=== PATIENT | female | born 1985 | race Two or more races ===

== ENCOUNTER 2016-09-28 16:01 | Emergency (ER) | payer OTHER ==
[~2016-09-28 16:01] MED LIST: IBUP80TA PO; PERCOCET PO; VITAPRTA PO
[2016-09-28] MEDS ORDERED: ONDANSETRON 4 MG ORAL DISINTEGRATING TAB (S0181) As Ordered ONE (16:50)
--- NOTE | 2016-09-28 17:15 | EDDOCDS ---
Nurse's Notes [facility] Name: Marlee Murillo Age: 31 yrs Sex: Female : 1985 Arrival Date: 09/28/2016 Time: 16:01 Bed Family 1 Private MD: HERBERT Marroquin Diagnosis: Nausea with vomiting, unspecified;Diarrhea, unspecified Presentation: 09/28 16:09 Presenting complaint: Patient states: c/o n/v/d, onset yesterday. also c/o sore throat, ead left ear pain, and congestion for 1 week. Adult Sepsis Screening: The patient does not have new or worsening altered mentation. Patient's respiratory rate is less than 22. Systolic blood pressure is greater than 100. Patient has a qSOFA score of 0- Negative Sepsis Screen. Suicide/Homicide risk assessment- the patient denies having any suicidal and/or homicidal ideations and does not present with any other emotional, behavioral or mental health complaints. Status: The patient is a dependent. Transition of care: patient was not received from another setting of care. 16:09 Acuity: LENA Level 3 ead 16:09 Method Of Arrival: Walkin/Carried/Asstd ead Triage Assessment: 16:10 General: Appears in no apparent distress, Behavior is appropriate for age, cooperative. ead Pain: Location: abdomen Pain currently is 8 out of 10 on a pain scale. EENT: Reports nasal congestion pain in left ear. GI: Reports diarrhea, lower abdominal pain, nausea, vomiting. Derm: Skin is pink, warm & dry. 16:12 Pt Declines HIV testing. 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 none - PMHx: none; - PSHx: ; - Social history: Smoking status: Patient states was never smoker of tobacco. No barriers to communication noted, The patient speaks fluent Puerto Rican, Speaks appropriately for age. - Family history: Not pertinent. - : The pt / caregiver states he / she is not on anticoagulants. Home medication list is obtained from the patient. - Exposure Risk Screening:: None identified. Screenin:12 Screening information is obtained from the patient. Fall risk: No risks identified. rs3 Assistance ADL's: requires no assistance with activities of daily living. Abuse/DV Screen: The patient / caregiver reports he/she is: not in a situation that causes fear, pain or injury. Nutritional screening: No deficits noted. Advance Directives: Currently, there is no health care proxy. home support is adequate. Assessment: 17:13 General: Appears in no apparent distress, Behavior is appropriate for age, cooperative. rs3 Respiratory: Airway is patent Respiratory effort is even, unlabored. GI: Abdomen is non- distended Bowel sounds present X 4 quads. Abd is soft and non tender X 4 quads. Reports nausea, vomiting. Vital Signs: 16:03 BP 117 / 60; Pulse 130; Resp 18 S; Temp 98.5(O); Pulse Ox 96% on R/A; Weight 52.16 kg dd6 (R); Height 5 ft. 2 in. (157.48 cm) (R); 16:03 Body Mass Index 21.03 (52.16 kg, 157.48 cm) dd6 Vitals: 16:03 Log In Time: September 28, 2016 at 16:00. dd6 ED Course: 16:03 Patient visited by Dagoberto Mancilla PCA. dd6 16:03 Lopez [facility] [place] Private Physician. dd6 16:03 Patient moved to Waiting dd6 16:05 Patient moved to Pre RCE dd6 16:10 Triage Initiated ead 16:15 Patient moved to Family 1 jc4 16:34 [facility] ke 16:34 Patient visited by Gordon Andujar FNP. ke 16:34 Patient visited by Gordon Andujar FNP. ke 16:48 Lopez [facility] [place] Referral Physician. ke 17:13 No IV's were initiated during this patient's visit. No procedures done that require rs3 assistance. 17:14 The patient / caregiver is instructed regarding the plan of care and ED course. rs3 Administered Medications: 16:53 Drug: Ondansetron ODT 4 mg [ondansetron 4 mg disintegrating tablet (1 tabs)] Route: PO; rs3 Order Results: There are currently no results for this order. Outcome: 16:49 Discharge ordered by Provider. ke 17:13 Discharge Assessment: patient administered narcotics - no. The following High Risk rs3 Discharge criteria are identified: None. Discharged to home with family. Condition: stable. Discharge instructions given to patient, Instructed on discharge instructions, follow up and referral plans. medication usage, Demonstrated understanding of instructions, medications, Pt was receptive of discharge instructions/ teaching. Prescriptions given X 1. No special radiology studies were completed. Property :Personal belongings accompany Pt. 17:14 Patient left the ED. rs3 Signatures: Gordon Andujar, CHIEF HUMAN RESOURCES OFFICER CHIEF HUMAN RESOURCES OFFICER Dagoberto Smith, LLOYD PILE DRIVING SUPERVISOR dd6 Bee Marin RN RN rs3 Alix Winn, RN RN jc4 Paris Lozano,RN RN ead MTDD
--- NOTE | 2016-09-28 17:15 | EDDOCDS ---
Physician Documentation [facility] Name: Marlee Murillo Age: 31 yrs Sex: Female : 1985 Arrival Date: 09/28/2016 Time: 16:01 Bed Family 1 Private MD: HERBERT Marroquin Disposition: 09/28/16 16:49 Discharged to Home/Self Care. Impression: Nausea with vomiting, unspecified, Diarrhea, unspecified. - Condition is Stable. - Discharge Instructions: Diarrhea, Nausea and Vomiting. - Prescriptions for ZOFRAN ODT 4 mg - dissolve 1 tablet by ORAL route 4 times per day As needed do not chew, do not swallow whole; 10 tablet. - Medication Reconciliation, Local Pharmacy Hours form. - Follow up: HERBERT Marroquin; When: 4 - 5 days; Reason: Recheck today's complaints, Continuance of care. - Problem is an ongoing problem. - Symptoms are unchanged. Historical: - Allergies: no known allergies; - Home Meds: 1. none - PMHx: none; - PSHx: ; - Social history: Smoking status: Patient states was never smoker of tobacco. No barriers to communication noted, The patient speaks fluent Turkish, Speaks appropriately for age. - Family history: Not pertinent. - : The pt / caregiver states he / she is not on anticoagulants. Home medication list is obtained from the patient. - Exposure Risk Screening:: None identified. 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 2 in. (157.48 cm) (R); 16:03 Body Mass Index 21.03 (52.16 kg, 157.48 cm) dd6 MDM: 16:44 Ondansetron ODT Oral Disintegrating Tablet 4 mg PO once ordered. yvonne 17:09 Financial registration complete. mpb Administered Medications: 16:53 Drug: Ondansetron ODT 4 mg [ondansetron 4 mg disintegrating tablet (1 tabs)] Route: PO; rs3 Signatures: Gordon Andujar, ROAD ROLLER OPERATOR ROAD ROLLER OPERATOR Bee Dejesus,RN RN rs3 Paris Lozano,RN RN ead Steve Roe, Reg Reg mpb MTDD
--- NOTE | 2016-09-30 18:15 | EDDOCDS ---
Physician Documentation [facility] Name: Marlee Murillo Age: 31 yrs Sex: Female : 1985 Arrival Date: 09/28/2016 Time: 16:01 Bed Family 1 Private MD: HERBERT Marroquin Disposition: 09/28/16 16:49 Discharged to Home/Self Care. Impression: Nausea with vomiting, unspecified, Diarrhea, unspecified. - Condition is Stable. - Discharge Instructions: Diarrhea, Nausea and Vomiting. - Prescriptions for ZOFRAN ODT 4 mg - dissolve 1 tablet by ORAL route 4 times per day As needed do not chew, do not swallow whole; 10 tablet. - Medication Reconciliation, Local Pharmacy Hours form. - Follow up: HERBERT Marroquin; When: 4 - 5 days; Reason: Recheck today's complaints, Continuance of care. - Problem is an ongoing problem. - Symptoms are unchanged. Historical: - Allergies: no known allergies; - Home Meds: 1. none - PMHx: none; - PSHx: ; - Social history: Smoking status: Patient states was never smoker of tobacco. No barriers to communication noted, The patient speaks fluent Welsh, Speaks appropriately for age. - Family history: Not pertinent. - : The pt / caregiver states he / she is not on anticoagulants. Home medication list is obtained from the patient. - Exposure Risk Screening:: None identified. 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 2 in. (157.48 cm) (R); 16:03 Body Mass Index 21.03 (52.16 kg, 157.48 cm) dd6 MDM: 16:44 Ondansetron ODT Oral Disintegrating Tablet 4 mg PO once ordered. ke 17:09 Financial registration complete. mpb 09/29 01:59 T-Sheet-- Draft Copy was scanned into [employer] and attached to record. hs2 09/30 16:33 [place] [place] Payment Agreement was scanned into [employer] and attached to record. zo Administered Medications: 09/28 16:53 Drug: Ondansetron ODT 4 mg [ondansetron 4 mg disintegrating tablet (1 tabs)] Route: PO; rs3 Signatures: Gordon Andujar FNP FNP ke Olin, Zoeann zo Soosairaj, Rosemary, RN RN rs3 Paris Lozano RN RN ead Steve Roe, Reg Reg mpb Carrie Arrieta, Reg Reg hs2 The chart was reviewed and I authenticate all verbal orders and agree with the evaluation and treatment provided.Attachments: 09/29 01:59 T-Sheet-- Draft Copy hs2 09/30 16:33 [facility] Payment Agreement zo Chart Complete MTDD
--- NOTE | 2016-09-30 18:15 | EDDOCDS ---
Nurse's Notes [facility] Name: Marlee Murillo Age: 31 yrs Sex: Female : 1985 Arrival Date: 09/28/2016 Time: 16:01 Bed Family 1 Private MD: HERBERT Marroquin Diagnosis: Nausea with vomiting, unspecified;Diarrhea, unspecified Presentation: 09/28 16:09 Presenting complaint: Patient states: c/o n/v/d, onset yesterday. also c/o sore throat, ead left ear pain, and congestion for 1 week. Adult Sepsis Screening: The patient does not have new or worsening altered mentation. Patient's respiratory rate is less than 22. Systolic blood pressure is greater than 100. Patient has a qSOFA score of 0- Negative Sepsis Screen. Suicide/Homicide risk assessment- the patient denies having any suicidal and/or homicidal ideations and does not present with any other emotional, behavioral or mental health complaints. Status: The patient is a dependent. Transition of care: patient was not received from another setting of care. 16:09 Acuity: LENA Level 3 ead 16:09 Method Of Arrival: Walkin/Carried/Asstd ead Triage Assessment: 16:10 General: Appears in no apparent distress, Behavior is appropriate for age, cooperative. ead Pain: Location: abdomen Pain currently is 8 out of 10 on a pain scale. EENT: Reports nasal congestion pain in left ear. GI: Reports diarrhea, lower abdominal pain, nausea, vomiting. Derm: Skin is pink, warm & dry. 16:12 Pt Declines HIV testing. 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 none - PMHx: none; - PSHx: ; - Social history: Smoking status: Patient states was never smoker of tobacco. No barriers to communication noted, The patient speaks fluent Indonesian, Speaks appropriately for age. - Family history: Not pertinent. - : The pt / caregiver states he / she is not on anticoagulants. Home medication list is obtained from the patient. - Exposure Risk Screening:: None identified. Screenin:12 Screening information is obtained from the patient. Fall risk: No risks identified. rs3 Assistance ADL's: requires no assistance with activities of daily living. Abuse/DV Screen: The patient / caregiver reports he/she is: not in a situation that causes fear, pain or injury. Nutritional screening: No deficits noted. Advance Directives: Currently, there is no health care proxy. home support is adequate. Assessment: 17:13 General: Appears in no apparent distress, Behavior is appropriate for age, cooperative. rs3 Respiratory: Airway is patent Respiratory effort is even, unlabored. GI: Abdomen is non- distended Bowel sounds present X 4 quads. Abd is soft and non tender X 4 quads. Reports nausea, vomiting. Vital Signs: 16:03 BP 117 / 60; Pulse 130; Resp 18 S; Temp 98.5(O); Pulse Ox 96% on R/A; Weight 52.16 kg dd6 (R); Height 5 ft. 2 in. (157.48 cm) (R); 16:03 Body Mass Index 21.03 (52.16 kg, 157.48 cm) dd6 Vitals: 16:03 Log In Time: September 28, 2016 at 16:00. dd6 ED Course: 16:03 Patient visited by Dagoberto Mancilla PCA. dd6 16:03 Lopez [facility] [place] Private Physician. dd6 16:03 Patient moved to Waiting dd6 16:05 Patient moved to Pre RCE dd6 16:10 Triage Initiated ead 16:15 Patient moved to Family 1 jc4 16:34 [facility] ke 16:34 Patient visited by Gordon Andujar FNP. ke 16:34 Patient visited by Gordon Andujar FNP. ke 16:48 Lopez [facility] is Referral Physician. ke 17:13 No IV's were initiated during this patient's visit. No procedures done that require rs3 assistance. 17:14 The patient / caregiver is instructed regarding the plan of care and ED course. rs3 09/29 01:59 T-Sheet-- Draft Copy was scanned into [email or web address] and attached to record. hs2 09/30 16:33 [facility] Payment Agreement was scanned into [email or web address] and attached to record. zo Administered Medications: 09/28 16:53 Drug: Ondansetron ODT 4 mg [ondansetron 4 mg disintegrating tablet (1 tabs)] Route: PO; rs3 Order Results: There are currently no results for this order. Outcome: 16:49 Discharge ordered by Provider. ke 17:13 Discharge Assessment: patient administered narcotics - no. The following High Risk rs3 Discharge criteria are identified: None. Discharged to home with family. Condition: stable. Discharge instructions given to patient, Instructed on discharge instructions, follow up and referral plans. medication usage, Demonstrated understanding of instructions, medications, Pt was receptive of discharge instructions/ teaching. Prescriptions given X 1. No special radiology studies were completed. Property :Personal belongings accompany Pt. 17:14 Patient left the ED. rs3 Signatures: Gordon Andujar, SUPERVISOR RESEARCH SHOP SUPERVISOR RESEARCH SHOP Pauly Sage Daniell, ACTUARIAL SCIENCE TEACHER ACTUARIAL SCIENCE TEACHER dd6 Bee Marin,RN RN rs3 Alix Winn, RN RN jc4 Paris Lozano RN RN Carrie Banerjee, Reg Reg hs2 Chart Complete MARISEL
--- NOTE | 2016-09-30 18:15 | EDDOCDS ---
Physician Documentation [facility] Name: Marlee Murillo Age: 31 yrs Sex: Female : 1985 Arrival Date: 09/28/2016 Time: 16:01 Bed Family 1 Private MD: HERBERT Marroquin Disposition: 09/28/16 16:49 Discharged to Home/Self Care. Impression: Nausea with vomiting, unspecified, Diarrhea, unspecified. - Condition is Stable. - Discharge Instructions: Diarrhea, Nausea and Vomiting. - Prescriptions for ZOFRAN ODT 4 mg - dissolve 1 tablet by ORAL route 4 times per day As needed do not chew, do not swallow whole; 10 tablet. - Medication Reconciliation, Local Pharmacy Hours form. - Follow up: HERBERT Marroquin; When: 4 - 5 days; Reason: Recheck today's complaints, Continuance of care. - Problem is an ongoing problem. - Symptoms are unchanged. Historical: - Allergies: no known allergies; - Home Meds: 1. none - PMHx: none; - PSHx: ; - Social history: Smoking status: Patient states was never smoker of tobacco. No barriers to communication noted, The patient speaks fluent Ukrainian, Speaks appropriately for age. - Family history: Not pertinent. - : The pt / caregiver states he / she is not on anticoagulants. Home medication list is obtained from the patient. - Exposure Risk Screening:: None identified. 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 2 in. (157.48 cm) (R); 16:03 Body Mass Index 21.03 (52.16 kg, 157.48 cm) dd6 MDM: 16:44 Ondansetron ODT Oral Disintegrating Tablet 4 mg PO once ordered. ke 17:09 Financial registration complete. mpb 09/29 01:59 T-Sheet-- Draft Copy was scanned into [employer] and attached to record. hs2 09/30 16:33 [facility] Payment Agreement was scanned into [employer] and attached to record. zo Administered Medications: 09/28 16:53 Drug: Ondansetron ODT 4 mg [ondansetron 4 mg disintegrating tablet (1 tabs)] Route: PO; rs3 Signatures: Gordon Andujar FNP FNP ke Olin, Zoeann zo Soosairaj, Rosemary, RN RN rs3 Paris Lozano RN RN ead Steve Roe, Reg Reg mpb Carrie Arrieta, Reg Reg hs2 The chart was reviewed and I authenticate all verbal orders and agree with the evaluation and treatment provided.Attachments: 09/29 01:59 T-Sheet-- Draft Copy hs2 09/30 16:33 [facility] Payment Agreement zo Chart Complete MTDD
== END 2016-09-28 17:14 | disposition home or self-care (01) ==
LOC: M ED 16:01
DX: R19.7 Diarrhea, unspecified (principal); R11.2 Nausea with vomiting, unspecified